=== PATIENT | female | born 1985 | race Caucasian/White ===

== ENCOUNTER 2020-09-18 13:50 | Emergency (ER) | payer OTHER ==
--- NOTE | 2020-09-18 14:14 | ED Physician Documentation ---
PD HPI FEMALE - Stated complaint Stated Complaint: FEMALE - Chief complaint Chief Complaint: Abd Pain - History obtained from History obtained from: Patient - History of Present Illness Timing - onset: How many days ago (4) Timing - duration: Days (4) Timing - details: Gradual onset, Still present, Waxing and waning Associated symptoms: Pelvic pain (mid to left side), Vaginal bleeding. No: Vaginal discharge Contributing factors: (5 1/2 wks by dates.), Sexually active. 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 Has not been referred to REGIONAL SALES EXECUTIVE as yet.) Review of Systems Constitutional: denies: Fever, Chills Nose: denies: Rhinorrhea / runny nose, Congestion Throat: denies: Sore throat Respiratory: denies: Cough GI: reports: Abdominal Pain (cramping lower mid to left.), Nausea. denies: Vomiting : reports: Vaginal bleeding (dark blood, mild amount). denies: Dysuria, Discharge Neurologic: denies: Generalized weakness, Near syncope PD PAST MEDICAL HISTORY - Past Medical History Past Medical History: No Cardiovascular: None Respiratory: None Neuro: None Endocrine/Autoimmune: None - Allergies Allergies/Adverse Reactions: Allergies Allergy/AdvReac Type Severity Reaction Status Date / Time No Known Drug Allergies Allergy Verified 09/18/20 13:52 PD ED PE NORMAL - Vitals Vital signs reviewed: Yes - General General: Alert and oriented X 3, Well developed/nourished, Other (appears uncomfortable. ) - HEENT HEENT: Pharynx benign - Neck Neck: Supple, no meningeal sign, No adenopathy - Cardiac Cardiac: RRR, No murmur - Respiratory Respiratory: Clear bilaterally - Abdomen Abdomen: Normal bowel sounds, Soft, Non distended, No organomegaly, Other (tender LLQ to suprapubic area without guarding, percussion nor rebound t enderness. ) - Female Female : Deferred - Rectal Rectal: Deferred - Back Back: No CVA TTP - Derm Derm: Normal color, Warm and dry - Extremities Extremities: Normal ROM s pain, No edema, No calf tenderness / cord - Neuro Neuro: Alert and oriented X 3, No motor deficit, Normal speech Results - Vitals Vitals: Vital Signs - 24 hr 09/18/20 09/18/20 13:52 16:22 Temperature 36.5 C 36.7 C Heart Rate 100 83 Respiratory 18 18 Rate Blood Pressure 125/79 115/63 O2 Saturation 98 100 Oxygen O2 Source Room air - Labs Labs: Laboratory Tests 09/18/20 09/18/20 09/18/20 14:22 14:29 14:29 WBC 11.3 H RBC 4.04 L Hgb 12.5 Hct 36.4 L MCV 90.1 MCH 30.9 MCHC 34.3 RDW 12.1 Plt Count 178 MPV 11.1 H Neut # (Auto) 9.9 H Lymph # (Auto) 1.0 L [place] # (Auto) 0.4 Eos # (Auto) 0.0 Baso # (Auto) 0.0 Absolute Nucleated RBC 0.00 Nucleated RBC % 0.0 Sodium Potassium Chloride Carbon Dioxide Anion Gap BUN Creatinine Estimated GFR (MDRD) Glucose Calcium Total Bilirubin AST ALT Alkaline Phosphatase Total Protein Albumin Globulin Albumin/Globulin Ratio Lipase HCG, Quant Urine Color YELLOW Urine Clarity CLEAR Urine pH 6.0 Ur Specific [place] >=1.030 H Urine Protein NEGATIVE Urine Glucose (UA) NEGATIVE Urine Ketones NEGATIVE Urine Occult Blood TRACE-INTA Urine Nitrite NEGATIVE Urine Bilirubin NEGATIVE Urine Urobilinogen 0.2 (NORMAL) Ur Leukocyte Esterase NEGATIVE Ur Microscopic Review NOT INDICATED Urine Culture Comments NOT INDICATED Blood Type A POSITIVE 09/18/20 09/18/20 14:29 14:29 WBC RBC Hgb Hct MCV MCH MCHC RDW Plt Count MPV Neut # (Auto) Lymph # (Auto) [place] # (Auto) Eos # (Auto) Baso # (Auto) Absolute Nucleated RBC Nucleated RBC % Sodium 136 Potassium 3.5 Chloride 103 Carbon Dioxide 21 Anion Gap 12.0 BUN 15 Creatinine 0.9 Estimated GFR (MDRD) 71 L Glucose 126 H Calcium 9.4 Total Bilirubin 0.6 AST 16 ALT 15 Alkaline Phosphatase 37 L Total Protein 7.3 Albumin 4.6 Globulin 2.7 Albumin/Globulin Ratio 1.7 Lipase 28 HCG, Quant 64752.00 Urine Color Urine Clarity Urine pH Ur Specific [place] Urine Protein Urine Glucose (UA) Urine Ketones Urine Occult Blood Urine Nitrite Urine Bilirubin Urine Urobilinogen Ur Leukocyte Esterase Ur Microscopic Review Urine Culture Comments Blood Type - Rads (name of study) OB U/S Radiology: Prelim report reviewed (IUP 5w6d without adnexal abnormal nor free fluid. Corpus luteum cyst is on the left. Below threshold for cardiac activity. ), See rad report PD MEDICAL DECISION MAKING - ED course Complexity details: reviewed results (Ultrasound showing an IUP and quantitative hCG is appropriately elevated compared to a level of 1900 done 7 days ago. To fully assess viability at this point though would require repeat hCG in 3 to 4 days. No heart rate is seen at this time largely due to dates), re- evaluated patient, considered differential, d/w patient Departure - Departure Disposition: Home, Self Care Clinical Impression: Pelvic pain, Nausea/vomiting in Qualifiers: Weeks of gestation: less than 8 weeks Qualified Code(s): Z3A.01 - Less than 8 weeks gestation of Condition: Stable Record reviewed to determine appropriate education?: Yes Instructions: ED Nausea Vomiting Follow-Up: MARZENA BENSON DO [Primary Care Provider] - Cecilia Wolf MD [Provider Admit Priv/Credential] - Comments: Your is in the uterus. There is a small corpus luteum cyst on the left ovary that may be causing some of your pain there. I would suggest following up with REGIONAL SALES EXECUTIVE with a repeat quantitative level in 3 to 4 days. The is too early to see a heartbeat in the following the quantitative hCG is the way to affirm normal progression at this point. For your nausea and vomiting, use the vitamin B6 25 to 50 mg 3 times a day with a suggested maximum dose of 200 mg total per day. Use doxylamine every 6 hours if needed for nausea. Short-term diphenhydramine is also okay to use. For your pains Tylenol or ibuprofen are okay to use in in the early part. No NSAIDs after 20 weeks. Follow-up with REGIONAL SALES EXECUTIVE, call for a follow-up appointment. Discharge Date/Time: 09/18/20 17:23
[2020-09-18 14:39] LABS: BASOPHILS % (AUTO) 0.2 %; EOSINOPHILS % (AUTO) 0.3 %; HGB - HEMOGLOBIN 12.5 g/dL (12.0-16.0); LYMPHOCYTES % (AUTO) 8.5 %; MEAN CORPUSCULAR HEMOGLOBIN 30.9 pg (27.0-31.0); MEAN CORPUSCULAR HGB CONC 34.3 g/dL (32.0-36.0); MEAN CORPUSCULAR VOLUME 90.1 fL (81.0-99.0); MEAN PLATELET VOLUME 11.1 fL (7.9-10.8); MONOCYTES # (AUTO) 0.4 10^3/uL (0.0-1.0); MONOCYTES % (AUTO) 3.6 %; NEUTROPHILS # (AUTO) 9.9 10^3/uL (1.5-6.6); PLT - PLATELET COUNT 178 10^3/uL (130-450); RED BLOOD COUNT 4.04 10^6/uL (4.20-5.40); RED CELL DISTRIBUTION WIDTH 12.1 % (12.0-15.0); WHITE BLOOD COUNT 11.3 x10^3/uL (4.8-10.8)
[2020-09-18 14:40] LABS: BILIRUBIN,URINE NEGATIVE (NEGATIVE); GLUCOSE, URINE (UA) NEGATIVE (NEGATIVE); KETONES,URINE (UA) NEGATIVE (NEGATIVE); LEUKOCYTE ESTERASE, URINE NEGATIVE (NEGATIVE); NITRITE,URINE NEGATIVE (NEGATIVE); OCCULT BLOOD,URINE TRACE-INTA (NEGATIVE); PROTEIN,URINE NEGATIVE (NEGATIVE); UROBILINOGEN,URINE 0.2 (NORMAL) E.U./dL (NORMAL)
[2020-09-18 14:42] LABS: CLARITY,URINE CLEAR (CLEAR)
[2020-09-18] MEDS ORDERED: KETOROLAC 30 MG/ML VIAL IVP STA (14:46)
[2020-09-18] MEDS ORDERED: SODIUM CHLORIDE 0.9% 1,000 ML IV STA (14:46)
[2020-09-18 15:01] LABS: ALBUMIN 4.6 g/dL (3.2-5.5); ALBUMIN/GLOBULIN RATIO 1.7 (1.0-2.2); BILIRUBIN,TOTAL 0.6 mg/dL (0.2-1.0); CALCIUM 9.4 mg/dL (8.5-10.3); CREATININE 0.9 mg/dL (0.4-1.0); TOTAL PROTEIN 7.3 g/dL (6.7-8.2)
[2020-09-18 16:23] VITALS: BP 115/63
--- NOTE | 2020-09-18 16:37 | Ultrasound Report ---
PROCEDURE: OB First Trimester INDICATIONS: early ; vag bleed/LLQ pain OUTSIDE/PRIOR DATING DATA: Last menstrual period (LMP): 08/12/2020. LMP-based estimated date of delivery (SUNDAR): 05/19/2021. First dating scan (date and location): The study, 09/18/2020. Estimated date of delivery (SUNDAR) from first dating scan: Viable gestation is not yet established.. TECHNIQUE: Real-time scanning was performed of the fetus and maternal pelvic organs, with image documentation. COMPARISON: None FINDINGS: There is a saclike structure with an internal yolk sac within the endometrial space, measu ring 1.1 cm which would correlate with a 5 week 6 day gestation if viable gestation is in fact presen t. However, this may simply represent a gestation which has not yet developed to the degree that it i s sonographically identifiable. Embryo: Not yet seen. Measurement variability in dating: +/- 4 weeks by LMP, +/- 7 days by mean sac diameter (use before 6 weeks gestation if crown-rump length not able to be measured), +/- 5 days by crown-rump length (6-12 weeks gestation). Maternal organs: Ovaries free of evidence of ectopic gestation. IMPRESSION: Presumed viable gestation which is below the threshold for accurate detection of a pole and fet al cardiac activity by early first trimester ultrasound. Recommend follow-up sonographic assessment i n 7-10 days to establish accurate dating parameters and to confirm viable gestation. Reviewed by: Juan Rahman MD on 09/18/2020 4:36 PM PST Approved by: Juan Rahman MD on 09/18/2020 4:36 PM PST Station ID: [id number]
--- NOTE | 2020-09-18 18:13 | Ultrasound Report ---
PROCEDURE: OB Transvaginal INDICATIONS: early ; vag bleed/LLQ pain OUTSIDE/PRIOR DATING DATA: Last menstrual period (LMP): 08/12/2020. LMP-based estimated date of delive ry (SUNDAR): 05/19/2021. First dating scan (date and location): This study, 09/18/2020. Estimated date of delivery (SUNDAR) from first dating scan: Viable gestation is not yet established. TECHNIQUE: Real-time scanning was performed of the fetus and maternal pelvic organs, with image docum entation. COMPARISON: None FINDINGS: There is a saclike structure with an internal yolk sac within the endometrial space, measur ing 1.1 cm which would correlate with a 5 week 6 day gestation if viable gestation is in fact present . However, this may simply represent a gestation which has not yet developed to the degree that it is sonographically identifiable. Embryo: Not yet seen. Measurement variability in dating: +/- 4 weeks by LMP, +/- 7 days by mean sac diameter (use before 6 weeks gestation if crown-rump length not able to be measured), +/- 5 days by c rown-rump length (6-12 weeks gestation). Maternal organs: Ovaries free of evidence of ectopic gestation. IMPRESSION: Presumed viable gestation which is below the threshold for accurate detection of a pole and cardiac activity by early first trimester ultrasound. Recommend follow-up sonographic assessment in 7-10 days to establish accurate dating parameters and to confirm viable gestation. Reviewed by: Juan Rahman MD on 09/18/2020 6:12 PM PST Approved by: Juan Rahman MD on 09/18/2020 6:12 PM PST Station ID: [id number]
== END 2020-09-18 17:23 | disposition home or self-care (01) ==
LOC: ED 13:50
DX: O99.891 Other specified diseases and conditions complicating pregnancy (principal); R10.2 Pelvic and perineal pain; O21.0 Mild hyperemesis gravidarum; O34.81 Maternal care for other abnormalities of pelvic organs, first trimester; N83.12 Corpus luteum cyst of left ovary; Z3A.01 Less than 8 weeks gestation of pregnancy
CPT/HCPCS: 80053; 81001; 81003; 83690; 84702; 85025; 86900; 86901; 87086; 96361; 96374; 99284

== ENCOUNTER 2020-10-03 10:36 | Emergency (ER) | payer OTHER ==
[2020-10-03] MEDS ORDERED: ONDANSETRON 4 MG/2 ML VIAL IVP STA ×2 (10:47→11:30)
[2020-10-03] MEDS ORDERED: SODIUM CHLORIDE 0.9% 1,000 ML IV STA ×2 (10:47→11:30)
[2020-10-03 11:11] LABS: BASOPHILS % (AUTO) 0.3 %; EOSINOPHILS % (AUTO) 0.2 %; HCT - HEMATOCRIT 35.7 % (37.0-47.0); HGB - HEMOGLOBIN 12.1 g/dL (12.0-16.0); LYMPHOCYTES % (AUTO) 10.8 %; MEAN CORPUSCULAR HEMOGLOBIN 30.2 pg (27.0-31.0); MEAN CORPUSCULAR HGB CONC 33.9 g/dL (32.0-36.0); MEAN PLATELET VOLUME 11.3 fL (7.9-10.8); MONOCYTES # (AUTO) 0.5 10^3/uL (0.0-1.0); MONOCYTES % (AUTO) 5.1 %; NEUTROPHILS # (AUTO) 7.5 10^3/uL (1.5-6.6); NEUTROPHILS % (AUTO) 83.2 %; PLT - PLATELET COUNT 178 10^3/uL (130-450); RED BLOOD COUNT 4.01 10^6/uL (4.20-5.40); RED CELL DISTRIBUTION WIDTH 12.2 % (12.0-15.0)
[2020-10-03 11:30] LABS: ALBUMIN 4.5 g/dL (3.2-5.5); ALBUMIN/GLOBULIN RATIO 1.5 (1.0-2.2); CALCIUM 9.6 mg/dL (8.5-10.3); CREATININE 0.9 mg/dL (0.4-1.0); POTASSIUM 3.3 mmol/L (3.5-5.0); TOTAL PROTEIN 7.5 g/dL (6.7-8.2)
--- NOTE | 2020-10-03 12:22 | ED Physician Documentation ---
History of Present Illness - Stated complaint Stated Complaint: HYPEREMESIS - Chief complaint Chief Complaint: General - History obtained from History obtained from: Patient - Additonal information Additional information: Patient comes emergency department chief complaint of nausea and vomiting. She is 8 weeks and states the symptoms have been going on for several weeks. She had a brief reprieve around 6 weeks, but states she has not been able to hold anything down for the last few days. Patient states she feels weak and dehydrated. No dysuria. No fevers or chills. No abdominal pain, other than some soreness from vomiting. No vaginal bleeding or discharge. No other complaints at this time. Review of Systems Ten Systems: 10 systems reviewed and negative Constitutional: reports: Reviewed and negative Eyes: reports: Reviewed and negative Ears: reports: Reviewed and negative Nose: reports: Reviewed and negative Throat: reports: Reviewed and negative Cardiac: reports: Reviewed and negative Respiratory: reports: Reviewed and negative GI: reports: Nausea, Vomiting : reports: Reviewed and negative Skin: reports: Reviewed and negative Musculoskeletal: reports: Reviewed and negative Neurologic: reports: Reviewed and negative Psychiatric: reports: Reviewed and negative Endocrine: reports: Reviewed and negative Immunocompromised: reports: Reviewed and negative PD PAST MEDICAL HISTORY - Past Medical History Past Medical History: Yes Cardiovascular: None Respiratory: None Neuro: None Endocrine/Autoimmune: None Musculoskeletal: Fibromyalgia - Past Surgical History Past Surgical History: Yes /TAXATION ECONOMIST: section - Present Medications Home Medications: Ambulatory Orders Medication Instructions Recorded Confirmed Ondansetron Odt [Zofran] 4 mg TL Q6H PRN #30 tablet 10/03/20 - Allergies Allergies/Adverse Reactions: Allergies Allergy/AdvReac Type Severity Reaction Status Date / Time No Known Drug Allergies Allergy Verified 10/03/20 10:47 - Social History Does the pt smoke?: No Smoking Status: Never smoker Does the pt drink ETOH?: No Does the pt have substance abuse?: No Substance Use and Type: Marijuana - Immunizations Immunizations are current?: No PD ED PE NORMAL - Vitals Vital signs reviewed: Yes - General General: Alert and oriented X 3, No acute distress - HEENT HEENT: Atraumatic, PERRL, EOMI, Moist mucous membranes - Neck Neck: Supple, no meningeal sign - Cardiac Cardiac: RRR, No murmur - Respiratory Respiratory: No respiratory distress, Clear bilaterally - Abdomen Abdomen: Soft, Non distended, Other (Mild diffuse tenderness.) - Derm Derm: Warm and dry - Extremities Extremities: No deformity - Neuro Neuro: Alert and oriented X 3 - Psych Psych: Normal mood, Normal affect Results - Vitals Vitals: Vital Signs - 24 hr 10/03/20 10/03/20 10/03/20 10:40 11:04 13:30 Temperature 36.6 C 37.1 C Heart Rate 77 84 87 Respiratory 20 19 24 Rate Blood Pressure 93/56 L 115/96 H 108/66 O2 Saturation 98 100 100 Oxygen O2 Source Room air - Labs Labs: Laboratory Tests 10/03/20 10/03/20 10/03/20 11:04 11:04 11:07 WBC 9.0 RBC 4.01 L Hgb 12.1 Hct 35.7 L MCV 89.0 MCH 30.2 MCHC 33.9 RDW 12.2 Plt Count 178 MPV 11.3 H Neut # (Auto) 7.5 H Lymph # (Auto) 1.0 L [place] # (Auto) 0.5 Eos # (Auto) 0.0 Baso # (Auto) 0.0 Absolute Nucleated RBC 0.00 Nucleated RBC % 0.0 Sodium 133 L Potassium 3.3 L Chloride 103 Carbon Dioxide 18 L Anion Gap 12.0 BUN 14 Creatinine 0.9 Estimated GFR (MDRD) 71 L Glucose 107 H Calcium 9.6 Total Bilirubin 1.0 AST 17 ALT 19 Alkaline Phosphatase 39 L Total Protein 7.5 Albumin 4.5 Globulin 3.0 Albumin/Globulin Ratio 1.5 Lipase 28 Urine Color YELLOW Urine Clarity CLEAR Urine pH >=9.0 H Ur Specific [place] 1.015 Urine Protein NEGATIVE Urine Glucose (UA) NEGATIVE Urine Ketones TRACE Urine Occult Blood NEGATIVE Urine Nitrite NEGATIVE Urine Bilirubin NEGATIVE Urine Urobilinogen 0.2 (NORMAL) Ur Leukocyte Esterase NEGATIVE Ur Microscopic Review NOT INDICATED Urine Culture Comments NOT INDICATED PD MEDICAL DECISION MAKING - ED course Complexity details: reviewed results, re-evaluated patient, considered differential, d/w patient ED course: The patient was treated symptomatically with IV fluids and Zofran, after which she did feel better. Labs showed a mildly decreased potassium at 3.3 but otherwise unremarkable. I prescribed the patient oral dissolving Zofran for at home and have encouraged her to first drink clear liquids after taking the Zofran. She can tolerate this, then the patient feels up to it, she may eat. We have discussed home management of symptoms, as well as the usual indications for return and follow-up. Departure - Departure Disposition: 01 Home, Self Care Clinical Impression: Hyperemesis gravidarum Condition: Stable Instructions: Diet Clear Liquid Dc, ED Preg Morning Sickness Prescriptions: Ondansetron Odt [Zofran] 4 mg TL Q6H PRN #30 tablet PRN Reason: Nausea / Vomiting Comments: Your labs, overall, look fairly good. Please take the nausea medicine, as needed, to help with your ongoing nausea and vomiting. You should start by taking clear liquids after taking the nausea medicine. If you are able to tolerate this okay, then you may progress to food. If you are not able to hold down even clear liquids, even after taking the nausea medicine, then please return to the emergency department. Discharge Date/Time: 10/03/20 13:34
[2020-10-03 13:00] LABS: BILIRUBIN,URINE NEGATIVE (NEGATIVE); GLUCOSE, URINE (UA) NEGATIVE (NEGATIVE); KETONES,URINE (UA) TRACE mg/dL (NEGATIVE); LEUKOCYTE ESTERASE, URINE NEGATIVE (NEGATIVE); NITRITE,URINE NEGATIVE (NEGATIVE); OCCULT BLOOD,URINE NEGATIVE (NEGATIVE); PH,URINE >=9.0 PH (5.0-7.5); PROTEIN,URINE NEGATIVE (NEGATIVE); UROBILINOGEN,URINE 0.2 (NORMAL) E.U./dL (NORMAL)
[2020-10-03 13:03] LABS: CLARITY,URINE CLEAR (CLEAR)
[2020-10-03 13:31] VITALS: BP 108/66
== END 2020-10-03 13:34 | disposition home or self-care (01) ==
LOC: ED 10:36
DX: O21.0 Mild hyperemesis gravidarum (principal); Z3A.08 8 weeks gestation of pregnancy
CPT/HCPCS: 36415; 80053; 81001; 81003; 83690; 85025; 87086; 96374; 99284

== ENCOUNTER 2020-10-11 18:48 | Outpatient (CLI) | payer OTHER ==
--- NOTE | 2020-10-12 08:37 | Ultrasound Report ---
PROCEDURE: OB Transvaginal INDICATIONS: SUPERVISON HIGH RISK FINDINGS/IMPRESSION: The images for this examination are contained in a separate accession number in PACS for the transabd ominal first trimester ultrasound. Please refer to the report for that exam for description of findin gs related to failed . Reviewed by: Cameron Rhodes MD on 10/11/2020 8:04 PM PDT Approved by: Cameron Rhodes MD on 10/11/2020 8:04 PM PDT Station ID: [id number]
--- NOTE | 2020-10-12 08:37 | Ultrasound Report ---
PROCEDURE: OB First Trimester INDICATIONS: SUPERVISON HIGH RISK , MULTIGRAVIDA OUTSIDE/PRIOR DATING DATA: Last menstrual period (LMP): 08/12/2020. LMP-based estimated date of delivery (SUNDAR): 05/19/2021. First dating scan (date and location): 10/11/2020. Estimated date of delivery (SUNDAR) from first dating scan: 05/26/2021. TECHNIQUE: Real-time scanning was performed of the fetus and maternal pelvic organs, with image documentation. COMPARISON: FINDINGS: Embryo: There is a gestational sac in the uterine fundus measuring 3.5 cm, consistent with gestation al age of 8 weeks 5 days. There is an embryo in the gestational sac with a crown-rump length of 1.3 c m. No heart rate identified. Maternal organs: Ovaries unremarkable.. IMPRESSION: No heart rate identified, despite an embryo with a crown-rump length of 1.3 cm. These findings are diagnostic of failed . Reviewed by: Cameron Rhodes MD on 10/11/2020 7:59 PM PDT Approved by: Cameron Rhodes MD on 10/11/2020 7:59 PM PDT Station ID: [id number]
== END 2020-10-11 18:49 | disposition home or self-care (01) ==
LOC: DI 18:48
PROVIDERS: ATTEND Obstetrics & Gynecology
DX: O36.8310 Maternal care for abnormalities of the fetal heart rate or rhythm, first trimester, not applicable or unspecified (principal); Z3A.08 8 weeks gestation of pregnancy

== ENCOUNTER 2020-10-12 20:48 | Outpatient (CLI) | payer OTHER ==
[2020-10-12 21:16] LABS: HCT - HEMATOCRIT 35.6 % (37.0-47.0); HGB - HEMOGLOBIN 12.5 g/dL (12.0-16.0); MEAN CORPUSCULAR HEMOGLOBIN 31.9 pg (27.0-31.0); MEAN CORPUSCULAR HGB CONC 35.1 g/dL (32.0-36.0); MEAN CORPUSCULAR VOLUME 90.8 fL (81.0-99.0); MEAN PLATELET VOLUME 11.6 fL (7.9-10.8); RED BLOOD COUNT 3.92 10^6/uL (4.20-5.40); RED CELL DISTRIBUTION WIDTH 12.5 % (12.0-15.0); WHITE BLOOD COUNT 9.8 x10^3/uL (4.8-10.8)
[2020-10-12 21:49] LABS: THYROID STIMULATING HORMONE 2.07 uIU/mL (0.34-5.60)
[2020-10-13 12:15] LABS: ESTIMATED AVERAGE GLUCOSE 105 mg/dL (70-100); HEMOGLOBIN A1c% 5.3 % (4.27-6.07)
== END 2020-10-12 20:49 | disposition home or self-care (01) ==
LOC: LAB 20:48
PROVIDERS: ATTEND Obstetrics & Gynecology
DX: O09.90 Supervision of high risk pregnancy, unspecified, unspecified trimester (principal); O26.20 Pregnancy care for patient with recurrent pregnancy loss, unspecified trimester; O03.9 Complete or unspecified spontaneous abortion without complication
CPT/HCPCS: 36415; 81240; 81241; 81599; 82306; 83036; 84443; 84702; 85027; 85613; 85730; 86147

== ENCOUNTER 2020-10-15 21:38 | Outpatient (CLI) | payer OTHER ==
[2020-10-15 22:43] LABS: % IRON SATURATION 19 % (20-50); IRON 62 ug/dL (28-170); TOTAL IRON BINDING CAPACITY 325 ug/dL (250-450); TRANSFERRIN 232 mg/dL (192-382)
== END 2020-10-15 21:39 | disposition home or self-care (01) ==
LOC: LAB 21:38
PROVIDERS: ATTEND Obstetrics & Gynecology
DX: O09.90 Supervision of high risk pregnancy, unspecified, unspecified trimester (principal); O99.019 Anemia complicating pregnancy, unspecified trimester; D64.9 Anemia, unspecified; O03.9 Complete or unspecified spontaneous abortion without complication
CPT/HCPCS: 36415; 81599; 82728; 83021; 83540; 84466; 84702; 85014; 85018; 85041

== ENCOUNTER 2020-11-03 20:42 | Outpatient (CLI) | payer OTHER | END 2020-11-03 20:43 | disposition home or self-care (01) | LOC: LAB 20:42 | PROVIDERS: ATTEND Obstetrics & Gynecology | DX: O03.4 Incomplete spontaneous abortion without complication (principal) | CPT/HCPCS: 36415; 84702 ==

== ENCOUNTER 2021-02-16 15:48 | Emergency (ER) | payer MEDICARE, OTHER ==
[2021-02-16 15:56] VITALS: BP 116/72
--- NOTE | 2021-02-16 16:29 | XRAY Report ---
PROCEDURE: Ankle 3 View LT INDICATIONS: Trauma TECHNIQUE: 3 views of the ankle were acquired. COMPARISON: Concurrent study of the left foot. FINDINGS: Bones: No fractures or dislocations. Ankle mortise is normally aligned. No suspicious bony lesions . Soft tissues: No tibiotalar joint effusion. Achilles tendon appears intact. IMPRESSION: 1. No fracture or dislocation. Reviewed by: Ji Jurado MD on 02/16/2021 4:27 PM PDT Approved by: Ji Jurado MD on 02/16/2021 4:27 PM PDT Station ID: [id number]
--- NOTE | 2021-02-16 16:30 | XRAY Report ---
PROCEDURE: Foot 3 View LT INDICATIONS: Trauma TECHNIQUE: 3 views of the foot were acquired. COMPARISON: Concurrent study of the left ankle. FINDINGS: Bones: No fractures or dislocations. No suspicious bony lesions. Soft tissues: No tibiotalar joint effusion. Achilles tendon appears normal. IMPRESSION: 1. No fracture or dislocation. Reviewed by: Ji Jurado MD on 02/16/2021 4:29 PM PDT Approved by: Ji Jurado MD on 02/16/2021 4:29 PM PDT Station ID: [id number]
[2021-02-16] MEDS ORDERED: IBUPROFEN 800 MG TABLET PO STA (16:50)
--- NOTE | 2021-02-16 16:53 | ED Physician Documentation ---
PD HPI LOWER EXT INJURY - Stated complaint Stated Complaint: FELL DOWN STAIRS - Chief complaint Chief Complaint: Trauma Ext - History obtained from History obtained from: Patient - History of Present Illness PD HPI LOW EXT INJURY LOCATION: Left, Ankle, Foot Type of injury: Fall, Twist Where injury occurred: Home Timing - onset: Last night Timing - details: Gradual onset Pain level max: 7 Pain level now: 5 Improved by: Rest Worsened by: Moving Contributing factors: No: Anticoagulated - Additional information Additional information: 35-year-old female states that she fell off of a step last night rolling her left ankle and twisting her left foot. Gradually is worsened throughout the day, swelling and bruising present. Not anticoagulated. Does have a history of a prior left ankle injury. Review of Systems Constitutional: denies: Fever, Chills GI: denies: Vomiting, Diarrhea Skin: denies: Rash PD PAST MEDICAL HISTORY - Past Medical History Past Medical History: Yes Cardiovascular: None Respiratory: None Neuro: None Endocrine/Autoimmune: None CREATIVE SERVICES COORDINATOR: Endometriosis Musculoskeletal: Fibromyalgia - Past Surgical History Past Surgical History: Yes /CREATIVE SERVICES COORDINATOR: section - Present Medications Home Medications: Ambulatory Orders Medication Instructions Recorded Confirmed Ibuprofen [Motrin] 800 mg PO Q8H PRN #30 tablet 02/16/21 - Allergies Allergies/Adverse Reactions: Allergies Allergy/AdvReac Type Severity Reaction Status Date / Time No Known Drug Allergies Allergy Verified 02/16/21 15:52 - Social History Does the pt smoke?: No Smoking Status: Never smoker Does the pt drink ETOH?: No Does the pt have substance abuse?: No - Immunizations Immunizations are current?: No PD ED PE NORMAL - Vitals Vital signs reviewed: Yes - General General: Alert and oriented X 3, No acute distress, Well developed/nourished - HEENT HEENT: Atraumatic, Moist mucous membranes - Neck Neck: Supple, no meningeal sign - Back Back: No spinal TTP - Derm Derm: Warm and dry - Extremities Extremities: Other (tender to palpation over the left lateral and medial malleoli of the ankle. No bony tenderness over the remainder of the foot or lower leg. Neurovascularly intact. Mild swelling about the ankle. ) - Neuro Neuro: Alert and oriented X 3 - Psych Psych: Normal mood, Normal affect Results - Vitals Vitals: Vital Signs - 24 hr 02/16/21 15:53 Temperature 36.7 C Heart Rate 85 Respiratory 18 Rate Blood Pressure 116/72 O2 Saturation 99 Oxygen O2 Source Room air - Rads (name of study) Left ankle x-ray Radiology: Final report received, EMP read contemporaneously, See rad report (No acute abnormality) L foot xray Radiology: Final report received, EMP read contemporaneously, See rad report (No acute abnormality) PD MEDICAL DECISION MAKING - ED course Complexity details: reviewed results, re-evaluated patient, considered differential, d/w patient ED course: 35-year-old female with a left ankle and left foot sprain. Placed in a postop shoe and Aircast for comfort. Ambulating without difficulty. Will place on Motrin for home. Patient counseled regarding signs and symptoms for which I believe and urgent re-evaluation would be necessary. Patient with good un derstanding of and agreement to plan and is comfortable going home at this time This document was made in part using voice recognition software. While efforts are made to proofread this document, sound alike and grammatical errors may occur. negative xrays Departure - Departure Disposition: 01 Home, Self Care Clinical Impression: Left ankle sprain Qualifiers: Encounter type: initial encounter Involved ligament of ankle: unspecified ligament Qualified Code(s): S93.402A - Sprain of unspecified ligament of left ankle, initial encounter Sprain of left foot Qualifiers: Encounter type: initial encounter Qualified Code(s): S93.602A - Unspecified sprain of left foot, initial encounter Condition: Good Instructions: ED Sprain Foot, ED Sprain Ankle Follow-Up: MARZENA BENSON DO [Primary Care Provider] - Within 1 week Prescriptions: Ibuprofen [Motrin] 800 mg PO Q8H PRN #30 tablet PRN Reason: PAIN &/OR FEVER Comments: You may bear weight as tolerated. There are no acute findings on your x-ray today. Return if you worsen. Discharge Date/Time: 02/16/21 17:05
== END 2021-02-16 17:05 | disposition home or self-care (01) ==
LOC: ED 15:48
DX: S93.402A Sprain of unspecified ligament of left ankle, initial encounter (principal); S93.602A Unspecified sprain of left foot, initial encounter; W10.9XXA Fall (on) (from) unspecified stairs and steps, initial encounter; X50.1XXA Overexertion from prolonged static or awkward postures, initial encounter; Y92.009 Unspecified place in unspecified non-institutional (private) residence as the place of occurrence of the external cause
CPT/HCPCS: 73610; 73630; 99283; 99284; A9270